=== PATIENT | male | born 2000 | race African-American/Black ===

== ENCOUNTER 2021-09-16 19:31 | Emergency (ER) | payer OTHER ==
[~2021-09-16] VITALS: Ht 172.7 cm; Wt 83.1 kg
[2021-09-16 19:51] VITALS: BP 108/80
[2021-09-16] MEDS ORDERED: ALBU8HFA IH (19:57)
== END 2021-09-16 21:57 | disposition left against medical advice (07) ==
LOC: EMS 19:39
DX: Z53.21 Procedure and treatment not carried out due to patient leaving prior to being seen by health care provider (principal)